=== PATIENT | female | born 1960 | race Caucasian/White ===

== ENCOUNTER 2021-01-06 12:29 | Inpatient (IN) | payer MEDICARE, OTHER ==
[~2021-01-06] VITALS: Ht 162.6 cm; Wt 79.4 kg
[~2021-01-06 12:29] MED LIST: CETI-90 PO; LEVA15HF4 IH; LISI20TA30 PO; METF-495 PO; OMEP40CA13 PO; SIMV-46 PO
--- NOTE | 2021-01-06 12:40 | NUR ---
Pt refuses to wear a mask, dr Mccloud made aware.
--- NOTE | 2021-01-06 12:45 | NUR ---
Dr Mccloud medically cleared the pt.
--- NOTE | 2021-01-06 12:59 | NUR ---
Pt refused blood draw for Acetaminophen level.
--- NOTE | 2021-01-06 13:04 | NUR ---
Lunch tray provided, pt ate w/ good appetite.
[2021-01-06] MEDS ORDERED: PANT40TA2 PO (13:13)
[2021-01-06] MEDS ORDERED: METF-440 PO (13:13)
[2021-01-06] MEDS ORDERED: EMPA10TA PO (13:13)
[2021-01-06] MEDS ORDERED: QUET400T PO (13:13)
[2021-01-06] MEDS ORDERED: OXYC-128 PO (13:13)
[2021-01-06] MEDS ORDERED: BUDE10.2 IH ×2 (13:13)
[2021-01-06 13:46] LABS: ACETAMINOPHEN < 2.0 ug/mL (10-30)
--- NOTE | 2021-01-06 13:57 | NUR ---
assissted pt to bathroom, unsteady gait.
--- NOTE | 2021-01-06 14:10 | NUR ---
Patient is resting comfortably in bed with eyes closed, NAD noted.
[2021-01-06] MEDS ORDERED: ACETAMINOPHEN 325 MG TABLET PO PRN (15:00)
[2021-01-06] MEDS ORDERED: ZOLPIDEM 5 MG TABLET PO PRN (15:00)
[2021-01-06] MEDS ORDERED: MAGNESIUM HYDROXIDE 30 ML LIQUID UDC PO PRN (15:00)
[2021-01-06] MEDS ORDERED: LORAZEPAM 0.5 MG TABLET PO PRN (15:00)
--- NOTE | 2021-01-06 15:00 | NUR ---
Gps/Composite Bond Technician- Received report from IN STORE REPRESENTATIVE. Admitted via gurney . Eyes closed, encouraged to open eyes, refused. patient refusing to get up from the gurney , refusing to follow directions. Patient was put in bed , sliding with 3 staff assisting . Patient mumbles, remains in her left side position , no signs of any distress. patient came in with a black suit case, and baby stroller (zabala ) . Unable to get any information at this time from the patient, refusing to talk, eye are flickering . Weighed via bed 179 lbs. Bed alarm was set for safety .
[2021-01-06] MEDS ORDERED: BLOOD SUGAR DIAGNOSTIC 1 EACH STRIP VI ONE (15:30)
[2021-01-06 16:00] VITALS: BP 112/77
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
--- NOTE | 2021-01-06 16:47 | NUR ---
Gps/Associate Professor Of Engineering- Asked patient permission if its ok to call her daughter Carri Burns , patient yelling top of her voice stated" dont you dare call that bitch , and get out of here ". refused to have light in the room, kept closing her door, discouraged from closing the door, oriented to unit settings. Patient refusing to listen to discussion why she is here in the Hosp. she kept yelling and calling staff names.
--- NOTE | 2021-01-06 17:05 | NUR ---
received a call from Maria Dolores (nurse from [facility] ) [phone], assisted with her inquiry will endorse with SW
--- NOTE | 2021-01-06 17:58 | NUR ---
Gps/Library Consultant- Patient agreed to have a shower, assisted by ACID LOADER 40 minutes .
[2021-01-06] MEDS: METFORMIN HCL 500 MG TABLET PO SCH (18:00)
[2021-01-06 20:09] VITALS: BP 116/72
[2021-01-06] MEDS: FLUTICASONE/VILANTEROL 1 EACH BLST.W.DEV INH SCH (21:00)
[2021-01-06] MEDS: SIMVASTATIN 40 MG TABLET PO SCH (21:00)
--- NOTE | 2021-01-07 05:54 | NUR ---
carol slept 5 hours; refused some meds; anxious earlier; had PRN ativan x1; safety maintained; needs attended.
[2021-01-07 07:30] VITALS: BP 116/68
[2021-01-07] MEDS: METFORMIN HCL 500 MG TABLET PO SCH ×3 (08:00→18:57)
[2021-01-07] MEDS: FLUTICASONE/VILANTEROL 1 EACH BLST.W.DEV INH SCH ×2 (08:43→20:43)
--- NOTE | 2021-01-07 12:10 | NUR ---
CADENCE Initial Discharge Plan: Patient was currently residing at home [address] [place] [address] [address] [address] ([phone]) with her daughter and her daughter's boyfriend. No information or contact is provided for daughter. Unknown at this time if patient would like to return home. CADENCE will continue to work with patient and MD to ensure a safe and proper discharge plan.
[2021-01-07] MEDS: DIVALPROEX 250 MG TABLET.DR PO SCH ×2 (12:36→17:00)
[2021-01-07] MEDS: QUETIAPINE FUMARATE 100 MG TABLET PO SCH ×4 (12:37→20:34)
--- NOTE | 2021-01-07 12:37 | NUR ---
gps/Pushcart Peddler- patient refusing seroquel and depakote, she claimed she does not want to take depakote , makes her gain weight, and seroquel she takes it at night 600 mg. po, reviewed with patient rest of her meds, claimed she does not want to take anything right right 'please leave me alone and turn the lights off"
--- NOTE | 2021-01-07 13:14 | NUR ---
Firearms Report: Antenna Design Engineer completed and submitted a [employer] firearms report for 5150 danger to self certifications. A copy of report has been placed in patient chart.
--- NOTE | 2021-01-07 13:15 | NUR ---
CADENCE Customer Solutions Coordinator Contact: CADENCE spoke with patient's porter sample case from [facility] Maria Dolores ([phone]) who provided collateral information as far as patient's mental health history. Patient's psychiatrist is Osbaldo Hinojosa at [facility]. Maria Dolores faxed patient's current medications.
[2021-01-07] MEDS ORDERED: HYDR-501 PO (14:19)
[2021-01-07] MEDS ORDERED: TOPI100T PO (15:02)
--- NOTE | 2021-01-07 15:13 | NUR ---
RECEIVED A FAX LETTER COMING FROM [facility] REGARDING PATIENTS UPDATE HOME MEDICATION LIST, UPDATED THE HOME MEDICATION , DR. WEN MADE AWARE
[2021-01-07] MEDS: MAG HYDROX/AL HYDROX/SIMETH 30 ML LIQUID UDC PO PRN (15:49)
--- NOTE | 2021-01-07 16:03 | NUR ---
Gps/Bullet Slug Casting Machine Operator- Complaining of indigestion , requesting protonix po, informed no such order , offered mylanta 30 ml as ordered, taken with encouragement.
[2021-01-07] MEDS: SIMVASTATIN 40 MG TABLET PO SCH (20:34)
--- NOTE | 2021-01-08 05:53 | NUR ---
GPS: Remain cooperative with medications,uncooperative with care. slept 7.30 hrs through the night. Patient is resting comfortably in bed with eyes closed, No agitation noted. continue plan of care.
[2021-01-08 07:30] VITALS: BP 104/67
--- NOTE | 2021-01-08 07:30 | NUR ---
Received patient lying in bed.sleeping but easily arousable.Non-compliant with po medications. Patient is alert and oriented times 2.Ambulate with FWW.no agitation noted at this time. Kept clean and dry. Safety measures in place. Will continue plan of care.
[2021-01-08 08:33] LABS: BILIRUBIN,TOTAL 0.3 mg/dL (0.2-1.0); CREATININE 0.8 mg/dL (0.6-1.3); POTASSIUM 4.5 mmol/L (3.5-5.1); TOTAL PROTEIN, SERUM 7.3 g/dL (6.4-8.2)
[2021-01-08] MEDS: METFORMIN HCL 500 MG TABLET PO SCH ×3 (08:50→17:30)
[2021-01-08] MEDS: QUETIAPINE FUMARATE 100 MG TABLET PO SCH ×4 (08:50→17:25)
[2021-01-08] MEDS: DIVALPROEX 250 MG TABLET.DR PO SCH ×5 (08:50→17:26)
[2021-01-08] MEDS: FLUTICASONE/VILANTEROL 1 EACH BLST.W.DEV INH SCH (08:51)
--- NOTE | 2021-01-08 10:06 | NUR ---
Received patient in the Yumiko chair close to the nursing station for safety. Patient is alert and oriented times 1. Patient responsive to name only. Patient is confused and disoriented to time and place. Compliant with medications. Patient is easily irritable and gets agitated. Needs complete assistance with ADLs. Safety precautions are in place. Will continue to monitor. Addendum: 01/08/21 at 1008 by PADILLA FLANAGAN RN Charted on the wrong patient.
[2021-01-08] MEDS ORDERED: Medication Not On Formulary EA (Omeprazole 40 MG) PO SCH (10:15)
[2021-01-08] MEDS ORDERED: Medication Not On Formulary EA (Empagliflozin (Jardiance) 10 MG) PO SCH (10:15)
[2021-01-08] MEDS: LISINOPRIL 20 MG TABLET PO SCH (10:15)
[2021-01-08] MEDS: CETIRIZINE HCL 10 MG TABLET PO SCH (10:15)
[2021-01-08] MEDS ORDERED: SIMVASTATIN 20 MG TABLET PO SCH (10:15)
[2021-01-08] MEDS ORDERED: DEXTROSE 50% 50 ML DISP.SYRIN IV PRN (10:15)
[2021-01-08] MEDS: PANTOPRAZOLE SODIUM 40 MG TABLET.DR PO SCH (10:15)
[2021-01-08] MEDS ORDERED: OXYCODONE/APAP 5-325 MG TABLET PO PRN (10:15)
[2021-01-08] MEDS ORDERED: hydrOXYzine HCL 25 MG TABLET PO PRN (10:15)
[2021-01-08] MEDS ORDERED: METFORMIN HCL 500 MG TABLET PO SCH ×2 (10:15)
[2021-01-08] MEDS: TOPIRAMATE 100 MG TABLET PO SCH ×2 (10:15→20:40)
--- NOTE | 2021-01-08 10:35 | NUR ---
Spoke with pharmacy. Asking for patient or family to provide Jardiance from home medications. Spoke with daughter toni, she says she is in the process of getting a restraining order on her mom. Also she says that patient refuses to be compliant with medications and end up in hospital every three weeks. Made pharmacist aware. Will continue to monitor.
--- NOTE | 2021-01-08 10:44 | NUR ---
Patient is refusing to wake up and take medication at this time. She says " she is too tired, haven't gotten any sleep and needs rest. Will not open her eyes just mumbles her responses.
[2021-01-08] MEDS: BLOOD SUGAR DIAGNOSTIC 1 EACH STRIP VI SCH ×3 (11:30→20:47)
--- NOTE | 2021-01-08 13:48 | NUR ---
Patient is still refusing to take medications. The only one she took was Seroquel. she is also complaining that her medications are being given at the wrong time. All risk snd benefits explained to the patient.
[2021-01-08] MEDS: MAG HYDROX/AL HYDROX/SIMETH 30 ML LIQUID UDC PO PRN (15:35)
--- NOTE | 2021-01-08 20:00 | NUR ---
patient refused v/s and blood sugar check.
[2021-01-08] MEDS: SIMVASTATIN 40 MG TABLET PO SCH (20:41)
[2021-01-08] MEDS ORDERED: QUETIAPINE FUMARATE 200 MG TABLET PO SCH (21:00)
[2021-01-09] MEDS: BLOOD SUGAR DIAGNOSTIC 1 EACH STRIP VI SCH ×4 (06:16→21:00)
--- NOTE | 2021-01-09 06:18 | NUR ---
GPS: Remain uncooperative with nursing care. patient refused am blood sugar check. no agitation noted at this time. slept 3.45 hrs after sleeping medication given. resting in bed comfortably.
[2021-01-09 07:30] VITALS: BP 106/58
[2021-01-09] MEDS: QUETIAPINE FUMARATE 100 MG TABLET PO SCH ×3 (08:00→16:17)
[2021-01-09] MEDS: METFORMIN HCL 500 MG TABLET PO SCH ×3 (08:00→17:23)
[2021-01-09] MEDS: LISINOPRIL 20 MG TABLET PO SCH (09:00)
[2021-01-09] MEDS: DIVALPROEX 250 MG TABLET.DR PO SCH ×3 (09:00→16:16)
[2021-01-09] MEDS: CETIRIZINE HCL 10 MG TABLET PO SCH ×2 (09:00→12:39)
[2021-01-09] MEDS ORDERED: METFORMIN HCL 500 MG TABLET PO SCH (09:00)
[2021-01-09] MEDS: PANTOPRAZOLE SODIUM 40 MG TABLET.DR PO SCH (09:00)
[2021-01-09] MEDS: FLUTICASONE/VILANTEROL 1 EACH BLST.W.DEV INH SCH ×2 (09:00→17:24)
--- NOTE | 2021-01-09 20:00 | NUR ---
RECEIVED PATIENT IN HER ROOM SITTING IN HER BED.SHE IS NOTED HYPERVERBAL, EASILY IRRITABLE, MULTIPLE COMPLAINS, VERBALLY ABUSIVE. PATIENT NOTED A/O X 2. POOR INSIGHT AND JUDGMENT IS NOTED TO THE REASON FOR HER ADMISSION TO MHU. SHE DENIED SI/HI/VH/AH. SHE IS ABLE TO CFS. SHE IS REASSURED FOR HER SAFETY. SAFETY AND FALL PRECAUTION IN PLACE. V/S STABLE. WILL CONTINUE TO MONITOR.
[2021-01-09 20:06] VITALS: BP 101/56
--- NOTE | 2021-01-09 21:45 | NUR ---
PATIENT REFUSED ACCU CHECK. THE IMPORTANCE OF COMPLYING WITH ACCUCHECKS TO IMPROVE DM SXS WERE EXPLAINED, YET REFUSED. WILL COJTINUE TO MONITOR,
[2021-01-09] MEDS: QUETIAPINE FUMARATE 200 MG TABLET PO SCH (21:53)
--- NOTE | 2021-01-09 22:00 | NUR ---
PATIENT WAS ABLE TO COMPLY WITH MEDICATION REGIMENT. SHE IS NOTED LESS IRRITABLE. WILL CONTINUE TO MONITOR.
[2021-01-09] MEDS: TOPIRAMATE 100 MG TABLET PO SCH (22:02)
[2021-01-09] MEDS: SIMVASTATIN 40 MG TABLET PO SCH (22:02)
[2021-01-10] MEDS: BLOOD SUGAR DIAGNOSTIC 1 EACH STRIP VI SCH ×4 (06:31→21:00)
--- NOTE | 2021-01-10 07:26 | NUR ---
patient slept for approx 4.30 hrs through the night. she refused accucheck. continue cursing easily irritable. will continue to monitor,
[2021-01-10 07:30] VITALS: BP 122/91
[2021-01-10] MEDS: QUETIAPINE FUMARATE 100 MG TABLET PO SCH ×2 (08:00→17:00)
[2021-01-10] MEDS: METFORMIN HCL 500 MG TABLET PO SCH ×2 (08:00→17:08)
[2021-01-10] MEDS: CETIRIZINE HCL 10 MG TABLET PO SCH (08:36)
[2021-01-10] MEDS: PANTOPRAZOLE SODIUM 40 MG TABLET.DR PO SCH (08:36)
[2021-01-10] MEDS: LISINOPRIL 20 MG TABLET PO SCH (08:36)
[2021-01-10] MEDS: FLUTICASONE/VILANTEROL 1 EACH BLST.W.DEV INH SCH ×2 (08:36→11:48)
[2021-01-10] MEDS: MAG HYDROX/AL HYDROX/SIMETH 30 ML LIQUID UDC PO PRN ×2 (10:53→17:07)
--- NOTE | 2021-01-10 19:00 | NUR ---
RECEIVED PATIENT IN HER ROOM. SHE IS NOTED A/O X 2. NOTED EASILY IRRITABLE, MULTIPLE COMPLAINS, "I DON'T NEED TO BE HERE". "I DON'T WANT A ROOM-MATE". "THE BED IS TOO SMALL". THEN SHE WILL LAY DOWN ON THE FLOOR. PATIENT IS HARD TO REDIRECT. MOOD IS IRRITABLE, AFFECT IS BLUNTED. SHE REFUSED ACCU CHECKS AND ALL HER QHS MEDICATIONS. SHE ALSO REFUSED V/S. PATIENT IS REASSURED FOR HER SAFETY, SAFETY AND FALL PRECAUTION IN PLACE. WILL CONTINUE TO MONITOR.
[2021-01-10] MEDS: TOPIRAMATE 100 MG TABLET PO SCH (21:00)
[2021-01-10] MEDS: QUETIAPINE FUMARATE 200 MG TABLET PO SCH (21:00)
[2021-01-10] MEDS: SIMVASTATIN 40 MG TABLET PO SCH (21:00)
[2021-01-10] MEDS ORDERED: OLANZAPINE 10 MG VIAL IM STA (21:45)
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
--- NOTE | 2021-01-10 23:00 | NUR ---
PATIENT NOTED CALM AT THIS. SHE IS ABLE TO VERBALIZED FEELINGS. SHE STATED, "I WAS JUST VENTING OUT". PATIENT WAS REASSURED FOR HER SAFETY. SAFETY AND FALL PRECAUTION IN PLACE. WILL CONTINUE TO MONITOR.
[2021-01-11] MEDS: MAG HYDROX/AL HYDROX/SIMETH 30 ML LIQUID UDC PO PRN ×2 (00:53→14:43)
[2021-01-11] MEDS: BLOOD SUGAR DIAGNOSTIC 1 EACH STRIP VI SCH ×4 (07:30→20:46)
[2021-01-11] MEDS: LISINOPRIL 20 MG TABLET PO SCH (08:54)
[2021-01-11] MEDS: FLUTICASONE/VILANTEROL 1 EACH BLST.W.DEV INH SCH (09:35)
[2021-01-11] MEDS: PANTOPRAZOLE SODIUM 40 MG TABLET.DR PO SCH (09:35)
[2021-01-11] MEDS: METFORMIN HCL 500 MG TABLET PO SCH ×2 (09:35→17:21)
[2021-01-11] MEDS: LITHIUM CARBONATE 300 MG CAPSULE PO SCH ×2 (09:36→17:21)
[2021-01-11] MEDS: CETIRIZINE HCL 10 MG TABLET PO SCH (09:36)
--- NOTE | 2021-01-11 11:03 | NUR ---
APS Contact: CADENCE received a call from APS long term care social worker Joie ([phone]). CADENCE called back however unable to reach and unable to leave a voicemail due to mailbox full.
--- NOTE | 2021-01-11 11:16 | NUR ---
SNF Referral: Faxed patient's referral packet attention to [facility] to the following facilities for review and possible placement [facility] ([phone]), [facility] ([phone]), [facility] ([phone]), [facility] ([phone]). Addendum: 01/13/21 at 1104 by BRENT VANEGAS Patient is accepted at [facility].
[2021-01-11] MEDS: ACYCLOVIR 200 MG CAPSULE PO SCH ×2 (14:00→22:00)
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
--- NOTE | 2021-01-11 14:36 | NUR ---
CADENCE BAIRD Hearing: Patient had 5250 probable cause hearing today and it was upheld for grave disability and danger to herself.
[2021-01-11 16:00] VITALS: BP 142/78
[2021-01-11 20:20] VITALS: BP 137/81
[2021-01-11] MEDS: QUETIAPINE FUMARATE 200 MG TABLET PO SCH (20:44)
[2021-01-11] MEDS: TOPIRAMATE 100 MG TABLET PO SCH (21:00)
[2021-01-11] MEDS: SIMVASTATIN 40 MG TABLET PO SCH (21:00)
[2021-01-11] MEDS: LORAZEPAM 1 MG TABLET PO PRN (23:50)
[2021-01-12] MEDS: ACYCLOVIR 200 MG CAPSULE PO SCH ×3 (06:45→21:47)
[2021-01-12] MEDS: BLOOD SUGAR DIAGNOSTIC 1 EACH STRIP VI SCH ×5 (06:45→20:31)
[2021-01-12 07:30] VITALS: BP 111/63
[2021-01-12 07:31] LABS: BASOPHILS % (AUTO) 0.5 % (0.0-2.0); EOSINOPHILS # (AUTO) 0.2 K/uL (0.0-0.7); HEMATOCRIT 38.5 % (31.2-41.9); HEMOGLOBIN 12.5 g/dL (10.9-14.3); LYMPHOCYTES # (AUTO) 2.5 K/uL (20.0-40.0); LYMPHOCYTES % (AUTO) 32.5 % (20.5-51.5); MEAN CORPUSCULAR HEMOGLOBIN 28.1 uug (24.7-32.8); MEAN CORPUSCULAR HGB CONC 33 g/dL (32.3-35.6); MEAN CORPUSCULAR VOLUME 86.4 fL (75.5-95.3); MONOCYTES # (AUTO) 0.7 K/uL (2.0-10.0); MONOCYTES % (AUTO) 8.9 % (0.0-11.0); NEUTROPHILS # (AUTO) 4.2 K/uL (1.8-8.9); NEUTROPHILS % (AUTO) 55.1 % (38.5-71.5); PLATELET COUNT (AUTO) 273 K/uL (179-408); RED BLOOD CELL COUNT(AUTO) 4.45 MIL/uL (3.63-4.92); WHITE BLOOD COUNT (AUTO) 7.7 K/uL (3.8-11.8)
[2021-01-12 07:41] LABS: CREATININE 0.8 mg/dL (0.6-1.3); POTASSIUM 4.3 mmol/L (3.5-5.1)
--- NOTE | 2021-01-12 07:41 | NUR ---
CALL RECEIVED FROM LAB RE BLOOD SUGAR IS 368 BUT PATIENT IS HAS BEEN REFUSING BLOOD SUGAR CHECKS THEN WAS ABLE TO CONVINCE HER AT 0753 TO HAVE HER BLOOD SUGAR CHECKED AND ITS 356 SO INSULIN GIVEN PER SLIDING COVERAGE WAS VERY DIFFICULT TO CONVINCE HER TO TAKE THE INSULIN NO S/S OF HYPO/HYPERGLYCEMIC REACTIONS AT THIS TIME.
[2021-01-12] MEDS: METFORMIN HCL 500 MG TABLET PO SCH ×2 (08:00→17:21)
[2021-01-12] MEDS: INSULIN REGULAR, HUMAN 300 UNIT/3 ML VIAL SQ PRN ×3 (08:09→17:24)
[2021-01-12] MEDS: CETIRIZINE HCL 10 MG TABLET PO SCH ×2 (09:00→10:59)
[2021-01-12] MEDS: FLUTICASONE/VILANTEROL 1 EACH BLST.W.DEV INH SCH ×2 (09:00→10:58)
[2021-01-12] MEDS: LISINOPRIL 20 MG TABLET PO SCH ×2 (09:00→10:59)
[2021-01-12] MEDS: PANTOPRAZOLE SODIUM 40 MG TABLET.DR PO SCH (10:10)
[2021-01-12] MEDS: LITHIUM CARBONATE 300 MG CAPSULE PO SCH ×3 (10:10→17:00)
--- NOTE | 2021-01-12 10:13 | NUR ---
WAS ONLY ABLE TO CONVINCE PATIENT TO TAKE HER LITHIUM AND PROTONIX REFUSED EVERYTHING ELSE AT THIS TIME STATED DOES NOT TAKE MEDICATIONS IN THE MORNING.
--- NOTE | 2021-01-12 11:00 | NUR ---
PATIENT IS AT THE NURSES STATION DEMANDING TO TAKE THE REST OF HER MEDICATIONS GIVEN ORDERED STATED DOES NOT LIKE TO TAKE MEDICATIONS EARLY WANTS HER MEDICATIONS WHEN SHE IS READY FOR THEM VERY ARGUMENTATIVE STATED WILL ONLY TAKE HER MEDICATIONS WHEN SHE WANTS TO TAKE THEM
--- NOTE | 2021-01-12 11:14 | NUR ---
APS Contact: SW spoke with APS social work coordinator Joie ([phone]) and provided treatment and discharge plan information. SW also discussed restraining order from daughter and provided collateral information. Joie stated that she is agreeable with SNF placement here in the [facility]. Joie provided this social work coordinator with the case number [id number]) and she stated that she is closing the case.
[2021-01-12 16:39] VITALS: BP 123/71
[2021-01-12] MEDS: LORAZEPAM 1 MG TABLET PO PRN (17:23)
--- NOTE | 2021-01-12 17:42 | NUR ---
PATIENT REFUSED TO TAKE HER LITHIUM ORDERED OFFERED MANY TIMES VERY ANXIOUS MEDICATED WITH ATIVAN ORDERED SHE IS ALSO DEMANDING TO GET HER INHALER BUT SHE DID GET HER INHALER THIS MORNING STATED SHE DID NOT REMEMBER GETTING IT REASSURED HER THAT SHE DID GET IT.
[2021-01-12] MEDS: SIMVASTATIN 40 MG TABLET PO SCH (20:22)
[2021-01-12] MEDS: TOPIRAMATE 100 MG TABLET PO SCH (20:22)
[2021-01-12] MEDS: QUETIAPINE FUMARATE 200 MG TABLET PO SCH (20:22)
[2021-01-12] MEDS: INSULIN GLARGINE,HUM 300 UNITS/3 ML CARTRIDGE SQ SCH (20:38)
[2021-01-12] MEDS: INSULIN REGULAR, HUMAN 300 UNITS/3 ML VIAL SQ PRN (20:47)
[2021-01-13] MEDS: ACYCLOVIR 200 MG CAPSULE PO SCH ×3 (06:00→21:33)
[2021-01-13] MEDS: BLOOD SUGAR DIAGNOSTIC 1 EACH STRIP VI SCH ×4 (06:37→20:40)
--- NOTE | 2021-01-13 06:39 | NUR ---
GPS: Pt.is angry,irritable and refusing blood sugar check at this time and her Acyclovir med.despite explanation of importance. Staff unable to persuade pt.at this time.
[2021-01-13 07:30] VITALS: BP 139/74
[2021-01-13] MEDS: METFORMIN HCL 500 MG TABLET PO SCH ×2 (08:00→18:01)
[2021-01-13] MEDS: LISINOPRIL 20 MG TABLET PO SCH (09:00)
[2021-01-13] MEDS: PANTOPRAZOLE SODIUM 40 MG TABLET.DR PO SCH (09:00)
[2021-01-13] MEDS: LITHIUM CARBONATE 300 MG CAPSULE PO SCH ×2 (09:00→17:00)
[2021-01-13] MEDS: FLUTICASONE/VILANTEROL 1 EACH BLST.W.DEV INH SCH (09:00)
[2021-01-13] MEDS: CETIRIZINE HCL 10 MG TABLET PO SCH (09:00)
--- NOTE | 2021-01-13 10:30 | NUR ---
Gps/Clerk Rating- Patient refusing routine am meds, offered insulin sliding scale coverage , refused, tends to be argumentative, refusing lithium , claimed she does note need to take it anymore, informed and instructed patient the needs to talked to her Psychiatrist , and comply with her Psych. meds. in order for her to get home. Selective with her medications, prompting and encouragement needed.
--- NOTE | 2021-01-13 11:47 | NUR ---
CADENCE Individual Therapy Note: SW met with patient today and provided brief individual counseling to address patient's presenting problem of suicidal ideation. SW assessed patient's level of suicidality. Patient denies current suicidal ideation. Patient presents with withdrawn mood and flat affect. Patient began to complain about her sleep and stated that she does not want to be bothered when she does sleep to take medications. SW attempted to help patient gain insight into her presenting problems and educated about the importance of her mental and physical health related to taking medications. Patient became irritated and stated "I know my body and I know better". Patient walked away from this oncology social worker. SW will remain available for patient for continued supportive counseling.
[2021-01-13] MEDS: INSULIN REGULAR, HUMAN 300 UNIT/3 ML VIAL SQ PRN (11:57)
--- NOTE | 2021-01-13 11:58 | NUR ---
Gps/Water Resource Project Manager- Sliding scale Insulin coverage not administer earlier, patient refusing to eat breakfast, ate late when fully awake. @ 1150 BS 348 . Not compliant with her care and meds. management.
--- NOTE | 2021-01-13 15:05 | NUR ---
Gps/Tray Line Supervisor- Needy, very intrusive, constantly needing redirections . Selective with her routine meds. Kept asking to have her own clothes to wear , clothes for bedtime and clothes for daytime /pt. .
[2021-01-13 16:00] VITALS: BP 106/62
--- NOTE | 2021-01-13 18:00 | NUR ---
Gps/Tablet Tester- Refusing pm med. claimed does not need them, refused blood sugar accu-check, claimed does not have blood sugar when eating,patient was taken to shower this pm, showered self ind after set up.
[2021-01-13 20:14] VITALS: BP 132/71
[2021-01-13] MEDS: QUETIAPINE FUMARATE 200 MG TABLET PO SCH (20:39)
[2021-01-13] MEDS: SIMVASTATIN 40 MG TABLET PO SCH (20:39)
[2021-01-13] MEDS: TOPIRAMATE 100 MG TABLET PO SCH (20:40)
[2021-01-13] MEDS: INSULIN REGULAR, HUMAN 300 UNITS/3 ML VIAL SQ PRN (20:44)
[2021-01-13] MEDS: INSULIN GLARGINE,HUM 300 UNITS/3 ML CARTRIDGE SQ SCH (20:45)
[2021-01-13] MEDS: MAG HYDROX/AL HYDROX/SIMETH 30 ML LIQUID UDC PO PRN (22:09)
--- NOTE | 2021-01-14 03:11 | NUR ---
RECEIVED PATIENT IN THE ACTIVITY ROOM. SHE WAS IRRITABLE WHEN HER BLOOD SUGAR WAS BEING CHECKED. BS WAS 264. BOTH INSULIN LANTUS AND REGULAR WAS GIVEN PRESCRIBED AFTER SHE HAD HAD A SNACK. SHE IS SELECTIVE WITH HER MEDICATIONS AND REFUSED TO TAKE THE ACYCLOVIR. RISKS AND BENEFIT EXPLAINED X3. OCCASIONALLY INTRUSIVE AND HAS TO BE REDIRECTED. VISUAL CHECKS MADE ON HER FOR SAFETY. WILL CONTINUE TO MONITOR.
[2021-01-14] MEDS: ACYCLOVIR 200 MG CAPSULE PO SCH ×3 (06:30→22:00)
[2021-01-14] MEDS: BLOOD SUGAR DIAGNOSTIC 1 EACH STRIP VI SCH ×4 (06:33→20:42)
--- NOTE | 2021-01-14 06:46 | NUR ---
SLEPT FOR 3:00 HOURS. BLOOD SUGAR CHECK WAS 280.TOOK HER A VERY LONG TIME TO TAKE HER MEDICATIONS THIS MORNING. 'SHE SAID I DO NOT DO MORNINGS WELL. TELL THE DOCTOR NOT TO PUT ME MEDS AT THIS TIME.'.
[2021-01-14 07:30] VITALS: BP 100/51
[2021-01-14] MEDS: FLUTICASONE/VILANTEROL 1 EACH BLST.W.DEV INH SCH (09:00)
[2021-01-14] MEDS: LITHIUM CARBONATE 300 MG CAPSULE PO SCH ×2 (09:00→17:00)
[2021-01-14] MEDS: LISINOPRIL 20 MG TABLET PO SCH (09:00)
[2021-01-14] MEDS: CETIRIZINE HCL 10 MG TABLET PO SCH (13:12)
[2021-01-14] MEDS: METFORMIN HCL 500 MG TABLET PO SCH ×2 (13:12→17:45)
[2021-01-14] MEDS: PANTOPRAZOLE SODIUM 40 MG TABLET.DR PO SCH (13:13)
--- NOTE | 2021-01-14 13:16 | NUR ---
Gps/Lcvn- Re offered lithium cap. refused, claimed it gives her bad side effects, when asked what is the side effect, claimed " it s making me psychotic".
[2021-01-14 15:25] VITALS: BP 94/66
[2021-01-14] MEDS: MAG HYDROX/AL HYDROX/SIMETH 30 ML LIQUID UDC PO PRN (16:32)
--- NOTE | 2021-01-14 17:45 | NUR ---
Gps/Mooner- Patient refusing to have her blood sugar accu-check this pm patient verbalized feelings of being upset that Dietary kept sending her food that she does not like. called dietary, will arranged menu for 5 days that patient can ann-marie , starting tomorrow. patient tends to be selective with her routine meds.
[2021-01-14 20:09] VITALS: BP 103/54
[2021-01-14] MEDS: INSULIN REGULAR, HUMAN 300 UNITS/3 ML VIAL SQ PRN (20:45)
[2021-01-14] MEDS: INSULIN GLARGINE,HUM 300 UNITS/3 ML CARTRIDGE SQ SCH (20:49)
[2021-01-14] MEDS: SIMVASTATIN 40 MG TABLET PO SCH (21:17)
[2021-01-14] MEDS: QUETIAPINE FUMARATE 200 MG TABLET PO SCH (21:17)
[2021-01-14] MEDS: TOPIRAMATE 100 MG TABLET PO SCH (21:17)
[2021-01-15] MEDS: ACYCLOVIR 200 MG CAPSULE PO SCH ×3 (06:00→21:23)
[2021-01-15] MEDS: BLOOD SUGAR DIAGNOSTIC 1 EACH STRIP VI SCH ×4 (06:11→20:41)
[2021-01-15 07:30] VITALS: BP 133/58
[2021-01-15] MEDS: INSULIN REGULAR, HUMAN 300 UNIT/3 ML VIAL SQ PRN ×3 (08:18→20:38)
[2021-01-15] MEDS: LISINOPRIL 20 MG TABLET PO SCH (08:18)
[2021-01-15] MEDS: METFORMIN HCL 500 MG TABLET PO SCH ×2 (08:18→18:02)
[2021-01-15] MEDS: FLUTICASONE/VILANTEROL 1 EACH BLST.W.DEV INH SCH (08:19)
[2021-01-15] MEDS: PANTOPRAZOLE SODIUM 40 MG TABLET.DR PO SCH (08:19)
[2021-01-15] MEDS: CETIRIZINE HCL 10 MG TABLET PO SCH (08:19)
[2021-01-15] MEDS: LITHIUM CARBONATE 300 MG CAPSULE PO SCH (08:30)
[2021-01-15] MEDS ORDERED: diphenhydrAMINE 50 MG CAPSULE PO PRN (11:00)
[2021-01-15] MEDS: LORAZEPAM 1 MG TABLET PO PRN (11:55)
--- NOTE | 2021-01-15 12:55 | NUR ---
Gps/Admissions Consultant- Complaining not getting what she wants during her meals, patient was able to talked to Technical Business Systems Analyst , menu for 5 days worth was gievn to patient that she can fill up. . Tends to get selective on her routine meds. wants to take, then on certain time . reviewed medications with patient, still not happy about her meds. wanting to take medications that works for her, , Claimed she is not suiciidal, not depressed anymore , instructed and encouraged to talk ti her psychiatrist .
[2021-01-15] MEDS: MAG HYDROX/AL HYDROX/SIMETH 30 ML LIQUID UDC PO PRN (15:55)
--- NOTE | 2021-01-15 16:02 | NUR ---
PT FREQUENTLY AT NURSES STATION, MAKING MULTIPLE REQUESTS AND COMPLAINTS. UNHAPPY WITH THE FOOD, UNHAPPY WITH THE DOCTORS, UNHAPPY WITH ROOM TEMPERATURES, UNHAPPY WITH HER MEDICATIONS, UNHAPPY WITH HER LACK OF SLEEP, ETC. REQUIRES EXTENSIVE AND FREQUENT REDIRECTION. PT IS AGITATED AND EASILY IRRITABLE. REMAINS NEEDY, INTRUSIVE, MANIPULATIVE, AND DEMANDING. FOLLOWS NURSES AROUND MAKING DIFFERENT REQUESTS/COMPLAINTS. NOTHING NURSES DO APPEAR TO APPROPRIATELY SATISFY PT.
[2021-01-15 20:21] VITALS: BP 115/61
[2021-01-15] MEDS: INSULIN GLARGINE,HUM 300 UNITS/3 ML CARTRIDGE SQ SCH (20:39)
[2021-01-15] MEDS: SIMVASTATIN 40 MG TABLET PO SCH (20:40)
[2021-01-15] MEDS: TOPIRAMATE 100 MG TABLET PO SCH (20:40)
[2021-01-15] MEDS: QUETIAPINE FUMARATE 200 MG TABLET PO SCH (20:40)
[2021-01-15] MEDS: INSULIN REGULAR, HUMAN 300 UNITS/3 ML VIAL SQ PRN (21:00)
[2021-01-16] MEDS: BLOOD SUGAR DIAGNOSTIC 1 EACH STRIP VI SCH ×4 (06:34→20:48)
[2021-01-16] MEDS: ACYCLOVIR 200 MG CAPSULE PO SCH (06:34)
[2021-01-16 07:30] VITALS: BP 123/78
[2021-01-16] MEDS: MAG HYDROX/AL HYDROX/SIMETH 30 ML LIQUID UDC PO PRN (08:19)
[2021-01-16] MEDS: LISINOPRIL 20 MG TABLET PO SCH (08:52)
[2021-01-16] MEDS: PANTOPRAZOLE SODIUM 40 MG TABLET.DR PO SCH (08:52)
[2021-01-16] MEDS: METFORMIN HCL 500 MG TABLET PO SCH ×2 (08:53→18:00)
[2021-01-16] MEDS: CETIRIZINE HCL 10 MG TABLET PO SCH (08:53)
[2021-01-16] MEDS: FLUTICASONE/VILANTEROL 1 EACH BLST.W.DEV INH SCH (09:00)
[2021-01-16] MEDS: INSULIN REGULAR, HUMAN 300 UNIT/3 ML VIAL SQ PRN ×2 (09:02→12:29)
[2021-01-16 15:18] VITALS: BP 105/68
--- NOTE | 2021-01-16 17:23 | NUR ---
Gps/Diesel Dinkey Operator- Noted patient crying in the activity room , when asked what is going on, claimed she needs to have a shower, and they made her wait. Informed patient someone in in the shower at this time she has to learn to wait, few minutes needed cleaning after after each patient's shower. Refusing to have her blood sugar check, claimed she will not eat dinner either. Walking around with just a long blouse and barefooted, discouraged from inappropriate clothes, , claimed she can do what she wants.
--- NOTE | 2021-01-16 17:27 | NUR ---
Gps/Wind Farm Operations Manager- Came out of her room , requesting to have a shower,, asking staff in a nice way.
[2021-01-16 20:14] VITALS: BP 116/64
[2021-01-16] MEDS: SIMVASTATIN 40 MG TABLET PO SCH (20:47)
[2021-01-16] MEDS: TOPIRAMATE 100 MG TABLET PO SCH (20:47)
[2021-01-16] MEDS: QUETIAPINE FUMARATE 200 MG TABLET PO SCH (20:47)
[2021-01-16] MEDS: INSULIN REGULAR, HUMAN 300 UNITS/3 ML VIAL SQ PRN (20:52)
[2021-01-16] MEDS: INSULIN GLARGINE,HUM 300 UNITS/3 ML CARTRIDGE SQ SCH (20:55)
[2021-01-17] MEDS: LORAZEPAM 1 MG TABLET PO PRN ×2 (00:15→14:48)
--- NOTE | 2021-01-17 06:36 | NUR ---
Patient slept for approx. 4 hrs through the night. She is compliant with medication regiment and accu checks. will continue to monitor.
[2021-01-17] MEDS: BLOOD SUGAR DIAGNOSTIC 1 EACH STRIP VI SCH ×4 (06:39→20:35)
[2021-01-17 07:30] VITALS: BP 98/55
[2021-01-17] MEDS: CETIRIZINE HCL 10 MG TABLET PO SCH (08:53)
[2021-01-17] MEDS: LISINOPRIL 20 MG TABLET PO SCH (08:54)
[2021-01-17] MEDS: PANTOPRAZOLE SODIUM 40 MG TABLET.DR PO SCH (08:54)
[2021-01-17] MEDS: METFORMIN HCL 500 MG TABLET PO SCH ×2 (08:54→17:09)
[2021-01-17] MEDS: FLUTICASONE/VILANTEROL 1 EACH BLST.W.DEV INH SCH (08:59)
[2021-01-17] MEDS: INSULIN REGULAR, HUMAN 300 UNIT/3 ML VIAL SQ PRN ×3 (09:33→16:56)
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
--- NOTE | 2021-01-17 15:05 | NUR ---
CADENCE Pole Peeling Machine Operator Contact: CADENCE contacted patient's disease case manager from [facility] ([phone]) and informed her of the patient's discharge plan for tomorrow to [facility].
[2021-01-17 15:16] VITALS: BP 126/79
--- NOTE | 2021-01-17 15:31 | NUR ---
CADENCE Individual Therapy Note: SW met with patient today and provided brief individual counseling to address patient's presenting problem of suicidal ideation. SW assessed patient's level of suicidality. Patient denies current suicidal ideation. Patient presents with irritable mood and restrictive affect. Patient is complaining of her sleep and is stating "I can't control my anger". SW helped patient with anger management however patient is not cooperative, is hyperverbal and not receptive to redirection. SW also discussed discharge plan with patient and she is agreeable with [facility]. SW will remain available for patient for continued supportive counseling.
[2021-01-17 20:11] VITALS: BP 124/66
[2021-01-17] MEDS: TOPIRAMATE 100 MG TABLET PO SCH (20:34)
[2021-01-17] MEDS: SIMVASTATIN 40 MG TABLET PO SCH (20:34)
[2021-01-17] MEDS: INSULIN REGULAR, HUMAN 300 UNITS/3 ML VIAL SQ PRN (20:37)
[2021-01-17] MEDS ORDERED: INSULIN GLARGINE,HUM 300 UNITS/3 ML CARTRIDGE SQ SCH (21:00)
[2021-01-17] MEDS ORDERED: QUETIAPINE FUMARATE 200 MG TABLET PO SCH (21:00)
--- NOTE | 2021-01-18 05:21 | NUR ---
GPS: Patient remain calm and cooperative with meds and diet. no agitation noted at this time. ambulates with fww. no c/o pain or discomfort at this time. resting in bed comfortably. continue plan of care.
--- NOTE | 2021-01-18 05:56 | NUR ---
Patient slept for approx. 7 hrs through the night.
[2021-01-18] MEDS: BLOOD SUGAR DIAGNOSTIC 1 EACH STRIP VI SCH (06:48)
[2021-01-18 07:45] LABS: BASOPHILS # (AUTO) 0.1 K/uL (0.0-8.0); BASOPHILS % (AUTO) 0.9 % (0.0-2.0); EOSINOPHILS # (AUTO) 0.2 K/uL (0.0-0.7); EOSINOPHILS % (AUTO) 2.2 % (0.0-7.0); HEMOGLOBIN 13.7 g/dL (10.9-14.3); LYMPHOCYTES # (AUTO) 3.2 K/uL (20.0-40.0); LYMPHOCYTES % (AUTO) 40.6 % (20.5-51.5); MEAN CORPUSCULAR HGB CONC 33 g/dL (32.3-35.6); MONOCYTES # (AUTO) 0.7 K/uL (2.0-10.0); NEUTROPHILS # (AUTO) 3.7 K/uL (1.8-8.9); NEUTROPHILS % (AUTO) 47.3 % (38.5-71.5); PLATELET COUNT (AUTO) 286 K/uL (179-408); RED BLOOD CELL COUNT(AUTO) 4.71 MIL/uL (3.63-4.92); WHITE BLOOD COUNT (AUTO) 7.8 K/uL (3.8-11.8)
[2021-01-18 08:00] LABS: BILIRUBIN,TOTAL 0.2 mg/dL (0.2-1.0); CREATININE 0.7 mg/dL (0.6-1.3); MAGNESIUM 1.9 mg/dL (1.8-2.4); PHOSPHOROUS 4.1 mg/dL (2.5-4.9); POTASSIUM 4.1 mmol/L (3.5-5.1); TOTAL PROTEIN, SERUM 7.5 g/dL (6.4-8.2)
[2021-01-18 08:13] VITALS: BP 146/68
--- NOTE | 2021-01-18 08:20 | NUR ---
SW Discharge Note: Patient will be discharged to fpc facility [facility] [place] [address] ([phone]) via Ambulance transportation at 11AM today. Abalone Fisherman spoke with , Intensive Care Unit Registered Nurse ([phone]) at facility who confirmed that patient has been accepted at their facility today. Patient is alert and oriented x3. Patient is not able to plan for self-care at this time but is willing to accept care provided for her at the facility. Patient denies suicidal or homicidal ideation. Patient is aware and agreeable with discharge plans. Patient presents with euthymic mood and congruent affect. Patient will continue to follow-up with Psychiatrist Dr. Shanks and Packaging Designer Dr. Reddy at [facility]. Patients medical case worker from [facility] ([phone]) is made aware and is agreeable with discharge plan.
[2021-01-18 08:54] VITALS: BP 146/68
[2021-01-18] MEDS: CETIRIZINE HCL 10 MG TABLET PO SCH (08:54)
[2021-01-18] MEDS: METFORMIN HCL 500 MG TABLET PO SCH (08:54)
[2021-01-18] MEDS: MAG HYDROX/AL HYDROX/SIMETH 30 ML LIQUID UDC PO PRN (08:54)
[2021-01-18] MEDS: PANTOPRAZOLE SODIUM 40 MG TABLET.DR PO SCH (08:54)
[2021-01-18] MEDS: FLUTICASONE/VILANTEROL 1 EACH BLST.W.DEV INH SCH (08:54)
[2021-01-18] MEDS: LISINOPRIL 20 MG TABLET PO SCH (08:54)
[2021-01-18] MEDS: INSULIN REGULAR, HUMAN 300 UNIT/3 ML VIAL SQ PRN (11:14)
--- NOTE | 2021-01-18 11:15 | NUR ---
GPS: Nursing Notes: Discharge Notes: Patient is awake and responding to her name, compliant with her medications, following staff directions, but argumentative at times, denies SI/HI, denies AH/VH, denies pain or discomfort at this time, denies SOB, discharge to [facility] at [address] [place] [id number] , paramedics took all her belongings and team psychologist counted the money: $173.06 and cell phone, report given to Norma COLLINS tumbling and rolling supervisor at the facility. Patient will continue to follow-up with Psychiatrist Dr. Shanks and Batch And Furnace Manager Dr. Reddy at [facility]. Patients case hardener from [facility] ([phone]) is made aware and is agreeable with discharge plan by high school social science teacher.
== END 2021-01-18 11:15 | DRG 885 ==
LOC: ER 12:29 → GPS 14:37
PROVIDERS: ADMIT Psychiatry & Neurology Psychiatry; ATTEND Internal Medicine
DX: F25.0 Schizoaffective disorder, bipolar type (principal); E11.65 Type 2 diabetes mellitus with hyperglycemia; D68.69 Other thrombophilia; K21.9 Gastro-esophageal reflux disease without esophagitis; E78.5 Hyperlipidemia, unspecified; Z79.84 Long term (current) use of oral hypoglycemic drugs; Z79.899 Other long term (current) drug therapy; F41.9 Anxiety disorder, unspecified; E66.9 Obesity, unspecified; Z91.19 Patient's noncompliance with other medical treatment and regimen; G89.29 Other chronic pain; G47.00 Insomnia, unspecified; Z88.0 Allergy status to penicillin; B00.9 Herpesviral infection, unspecified; F32.9 Major depressive disorder, single episode, unspecified; M51.36 Other intervertebral disc degeneration, lumbar region; Z68.30 Body mass index [BMI] 30.0-30.9, adult; Z20.822 Contact with and (suspected) exposure to COVID-19
CPT/HCPCS: 36415; 83735; 84100; 84443; 84481; 85025; A4663; J1815; J2358; J3490; Q0163

== ENCOUNTER 2022-12-30 19:18 | Inpatient (IN) | payer MEDICARE, OTHER ==
[~2022-12-30] VITALS: Ht 139.7 cm; Wt 84.4 kg
[~2022-12-30 19:18] MED LIST changes: +BUDE10.2 IH; +EMPA10TA PO; +HYDR-501 PO; +METF-440 PO; -OMEP40CA13 PO; +OMEP40CA21 PO; +OXYC-128 PO; +PANT40TA2 PO; +TOPI100T PO
[2022-12-30] MEDS ORDERED: INSU100V7 SQ (19:44)
[2022-12-30] MEDS ORDERED: QUET400T PO (19:44)
[2022-12-30] MEDS ORDERED: METF-440 PO (19:44)
[2022-12-30] MEDS ORDERED: INSU100V39 SQ (19:44)
[2022-12-30] MEDS ORDERED: FLUT1BLS4 IH (19:44)
[2022-12-30] MEDS ORDERED: PANT40TA2 PO (19:44)
[2022-12-30] MEDS ORDERED: GABA300C PO (19:44)
[2022-12-30] MEDS ORDERED: LEVA0.6320 NEB (19:44)
[2022-12-30] MEDS ORDERED: INSULIN REGULAR, HUMAN 300 UNIT/3 ML VIAL IV ONE (20:15)
[2022-12-30] MEDS ORDERED: INSULIN REGULAR, HUMAN 300 UNIT/3 ML VIAL ONE (20:33)
[2022-12-31] MEDS ORDERED: MAGNESIUM HYDROXIDE 30 ML LIQUID UDC PO PRN
[2022-12-31] MEDS ORDERED: BLOOD SUGAR DIAGNOSTIC 1 EACH STRIP VI ONE
[2022-12-31] MEDS ORDERED: MAG HYDROX/AL HYDROX/SIMETH 30 ML LIQUID UDC PO PRN
[2022-12-31] MEDS ORDERED: DEXTROSE 50% 50 ML DISP.SYRIN IV PRN (12:45)
[2022-12-31] MEDS ORDERED: ALBUTEROL SULFATE 8 GM HFA.AER.AD IH PRN (13:00)
[2022-12-31] MEDS ORDERED: OLANZAPINE 10 MG VIAL IM ONE (13:30)
[2022-12-31] MEDS ORDERED: ALBUTEROL SULFATE 2.5 MG/3 ML NEBU NEB PRN (13:30)
[2022-12-31 16:04] VITALS: BP 100/64
[2022-12-31] MEDS: BLOOD SUGAR DIAGNOSTIC 1 EACH STRIP VI SCH ×2 (17:00→22:25)
[2022-12-31] MEDS: INSULIN REGULAR, HUMAN 300 UNIT/3 ML VIAL SQ PRN ×2 (17:34→22:29)
[2022-12-31] MEDS: GABAPENTIN 300 MG CAPSULE PO SCH ×2 (17:38→22:31)
[2022-12-31] MEDS: METFORMIN HCL 500 MG TABLET PO SCH (17:38)
[2022-12-31] MEDS: INSULIN GLARGINE,HUM 300 UNITS/3 ML CARTRIDGE SQ SCH (22:27)
[2022-12-31] MEDS: LORAZEPAM 1 MG TABLET PO PRN (22:29)
[2022-12-31] MEDS: TEMAZEPAM 7.5 MG CAPSULE PO PRN (22:29)
[2023-01-01] MEDS: GABAPENTIN 300 MG CAPSULE PO SCH ×4 (06:00→23:06)
[2023-01-01] MEDS: BLOOD SUGAR DIAGNOSTIC 1 EACH STRIP VI SCH ×4 (06:42→21:00)
[2023-01-01] MEDS: PANTOPRAZOLE SODIUM 40 MG TABLET.DR PO SCH (06:48)
[2023-01-01] MEDS: METFORMIN HCL 500 MG TABLET PO SCH ×2 (08:00→17:28)
[2023-01-01 08:47] VITALS: BP 98/61
[2023-01-01] MEDS: FLUTICASONE/VILANTEROL 1 EACH BLST.W.DEV INH SCH (08:58)
[2023-01-01] MEDS: ARIPIPRAZOLE 5 MG TABLET PO SCH (08:58)
[2023-01-01] MEDS: NUTRISOURCE FIBER 4 GM PACKET PO SCH ×2 (12:10→16:23)
[2023-01-01 16:41] VITALS: BP 106/64
[2023-01-01 20:07] VITALS: BP 101/66
[2023-01-01] MEDS: TEMAZEPAM 7.5 MG CAPSULE PO PRN (20:56)
[2023-01-01] MEDS: INSULIN GLARGINE,HUM 300 UNITS/3 ML CARTRIDGE SQ SCH (21:00)
[2023-01-01] MEDS ORDERED: ARIPIPRAZOLE 5 MG TABLET PO SCH (21:00)
[2023-01-02] MEDS: GABAPENTIN 300 MG CAPSULE PO SCH ×4 (06:54→23:59)
[2023-01-02] MEDS: PANTOPRAZOLE SODIUM 40 MG TABLET.DR PO SCH (06:54)
[2023-01-02] MEDS: BLOOD SUGAR DIAGNOSTIC 1 EACH STRIP VI SCH ×4 (06:57→20:17)
[2023-01-02] MEDS: METFORMIN HCL 500 MG TABLET PO SCH ×2 (08:00→17:32)
[2023-01-02] MEDS: ARIPIPRAZOLE 5 MG TABLET PO SCH (09:00)
[2023-01-02] MEDS: NUTRISOURCE FIBER 4 GM PACKET PO SCH ×3 (09:00→16:34)
[2023-01-02] MEDS: FLUTICASONE/VILANTEROL 1 EACH BLST.W.DEV INH SCH (09:00)
[2023-01-02] MEDS ORDERED: QUETIAPINE FUMARATE 25 MG TABLET PO PRN (19:00)
[2023-01-02] MEDS: INSULIN GLARGINE,HUM 300 UNITS/3 ML CARTRIDGE SQ SCH (20:17)
[2023-01-02] MEDS: TEMAZEPAM 7.5 MG CAPSULE PO PRN (20:38)
[2023-01-02] MEDS ORDERED: QUETIAPINE FUMARATE 25 MG TABLET PO SCH (21:00)
[2023-01-03] MEDS: GABAPENTIN 300 MG CAPSULE PO SCH ×5 (06:00→23:26)
[2023-01-03] MEDS: PANTOPRAZOLE SODIUM 40 MG TABLET.DR PO SCH ×2 (06:14→06:21)
[2023-01-03] MEDS: BLOOD SUGAR DIAGNOSTIC 1 EACH STRIP VI SCH ×4 (06:33→20:41)
[2023-01-03 07:30] VITALS: BP 127/92
[2023-01-03 07:47] LABS: HEMATOCRIT 40.1 % (31.2-41.9); MEAN CORPUSCULAR HEMOGLOBIN 28.8 uug (24.7-32.8); MEAN CORPUSCULAR VOLUME 87.2 fL (75.5-95.3); PLATELET COUNT (AUTO) 287 K/uL (179-408)
[2023-01-03 07:57] LABS: BILIRUBIN,TOTAL 0.2 mg/dL (0.2-1.0); CREATININE 0.7 mg/dL (0.6-1.3); POTASSIUM 4.3 mmol/L (3.5-5.1); TOTAL PROTEIN, SERUM 7.3 g/dL (6.4-8.2)
[2023-01-03] MEDS: METFORMIN HCL 500 MG TABLET PO SCH ×2 (08:00→18:00)
[2023-01-03] MEDS: FLUTICASONE/VILANTEROL 1 EACH BLST.W.DEV INH SCH (09:00)
[2023-01-03] MEDS: NUTRISOURCE FIBER 4 GM PACKET PO SCH ×3 (09:00→17:00)
[2023-01-03] MEDS ORDERED: QUETIAPINE FUMARATE 25 MG TABLET PO PRN (10:00)
[2023-01-03] MEDS ORDERED: OLANZAPINE 10 MG VIAL IM ONE (12:45)
[2023-01-03 16:00] VITALS: BP 102/54
[2023-01-03] MEDS: INSULIN GLARGINE,HUM 300 UNITS/3 ML CARTRIDGE SQ SCH (20:41)
[2023-01-03] MEDS ORDERED: QUETIAPINE FUMARATE 100 MG TABLET PO SCH (21:00)
[2023-01-03] MEDS ORDERED: QUETIAPINE FUMARATE 25 MG TABLET PO SCH (21:00)
[2023-01-03] MEDS: QUETIAPINE FUMARATE 100 MG TABLET PO SCH ×2 (21:24→22:41)
[2023-01-03] MEDS: TEMAZEPAM 7.5 MG CAPSULE PO PRN (22:41)
[2023-01-04] MEDS: BLOOD SUGAR DIAGNOSTIC 1 EACH STRIP VI SCH ×4 (05:54→21:00)
[2023-01-04] MEDS: PANTOPRAZOLE SODIUM 40 MG TABLET.DR PO SCH (05:54)
[2023-01-04] MEDS: GABAPENTIN 300 MG CAPSULE PO SCH ×3 (05:54→17:00)
[2023-01-04 08:00] VITALS: BP 119/84
[2023-01-04] MEDS: METFORMIN HCL 500 MG TABLET PO SCH ×2 (08:52→17:41)
[2023-01-04] MEDS: NUTRISOURCE FIBER 4 GM PACKET PO SCH ×3 (09:00→17:00)
[2023-01-04] MEDS: FLUTICASONE/VILANTEROL 1 EACH BLST.W.DEV INH SCH (09:00)
[2023-01-04] MEDS: INSULIN REGULAR, HUMAN 300 UNIT/3 ML VIAL SQ PRN (12:42)
[2023-01-04] MEDS ORDERED: DEXTROSE 50% 50 ML DISP.SYRIN IV PRN (13:15)
[2023-01-04 16:00] VITALS: BP 110/64
[2023-01-04] MEDS: LITHIUM CARBONATE 150 MG CAPSULE PO SCH (17:00)
[2023-01-04] MEDS ORDERED: LORAZEPAM 2 MG/1 ML VIAL IM ONE (19:15)
[2023-01-04] MEDS ORDERED: diphenhydrAMINE 50 MG/1 ML VIAL IM ONE (19:15)
[2023-01-04] MEDS ORDERED: HALOPERIDOL LACTATE 5 MG/1 ML VIAL IM ONE (19:15)
[2023-01-04 20:00] VITALS: BP 91/53
[2023-01-04] MEDS: QUETIAPINE FUMARATE 100 MG TABLET PO SCH (20:50)
[2023-01-04] MEDS: INSULIN GLARGINE,HUM 300 UNITS/3 ML CARTRIDGE SQ SCH (21:00)
[2023-01-05] MEDS: BLOOD SUGAR DIAGNOSTIC 1 EACH STRIP VI SCH ×4 (06:49→20:41)
[2023-01-05] MEDS: PANTOPRAZOLE SODIUM 40 MG TABLET.DR PO SCH (06:56)
[2023-01-05 08:00] VITALS: BP 96/53
[2023-01-05] MEDS: NUTRISOURCE FIBER 4 GM PACKET PO SCH ×3 (09:00→17:00)
[2023-01-05] MEDS: FLUTICASONE/VILANTEROL 1 EACH BLST.W.DEV INH SCH (09:00)
[2023-01-05] MEDS: METFORMIN HCL 500 MG TABLET PO SCH ×3 (10:52→18:23)
[2023-01-05] MEDS: GABAPENTIN 300 MG CAPSULE PO SCH ×3 (10:52→16:39)
[2023-01-05] MEDS: LITHIUM CARBONATE 150 MG CAPSULE PO SCH (10:52)
[2023-01-05] MEDS: INSULIN REGULAR, HUMAN 300 UNIT/3 ML VIAL SQ PRN ×2 (12:38→16:45)
[2023-01-05 16:17] VITALS: BP 98/57
[2023-01-05] MEDS: PROTEIN SUPPLEMENT (PROSTAT) 30 ML LIQUID PO SCH (17:00)
[2023-01-05 20:00] VITALS: BP 96/62
[2023-01-05] MEDS: QUETIAPINE FUMARATE 100 MG TABLET PO SCH (20:36)
[2023-01-05] MEDS: LITHIUM CARBONATE 300 MG CAPSULE PO SCH (20:36)
[2023-01-05] MEDS: INSULIN REGULAR, HUMAN 300 UNITS/3 ML VIAL SQ PRN (20:43)
[2023-01-05] MEDS: INSULIN GLARGINE,HUM 300 UNITS/3 ML CARTRIDGE SQ SCH (20:44)
[2023-01-06] MEDS: LORAZEPAM 1 MG TABLET PO PRN (04:46)
[2023-01-06] MEDS: PANTOPRAZOLE SODIUM 40 MG TABLET.DR PO SCH (06:06)
[2023-01-06] MEDS: BLOOD SUGAR DIAGNOSTIC 1 EACH STRIP VI SCH ×4 (06:06→20:23)
[2023-01-06] MEDS: METFORMIN HCL 500 MG TABLET PO SCH ×2 (09:38→16:26)
[2023-01-06] MEDS: LITHIUM CARBONATE 300 MG CAPSULE PO SCH ×2 (09:39→20:29)
[2023-01-06] MEDS: GABAPENTIN 300 MG CAPSULE PO SCH ×3 (09:39→16:25)
[2023-01-06] MEDS: FLUTICASONE/VILANTEROL 1 EACH BLST.W.DEV INH SCH (09:40)
[2023-01-06] MEDS: PROTEIN SUPPLEMENT (PROSTAT) 30 ML LIQUID PO SCH ×2 (09:40→17:11)
[2023-01-06] MEDS: NUTRISOURCE FIBER 4 GM PACKET PO SCH ×3 (09:40→17:11)
[2023-01-06 16:09] VITALS: BP 147/90
[2023-01-06 20:00] VITALS: BP 125/79
[2023-01-06] MEDS: INSULIN GLARGINE,HUM 300 UNITS/3 ML CARTRIDGE SQ SCH (20:27)
[2023-01-06] MEDS: INSULIN REGULAR, HUMAN 300 UNITS/3 ML VIAL SQ PRN (20:28)
[2023-01-06] MEDS: QUETIAPINE FUMARATE 100 MG TABLET PO SCH (20:29)
[2023-01-07] MEDS ORDERED: LORAZEPAM 2 MG/1 ML VIAL IM ONE (02:15)
[2023-01-07] MEDS ORDERED: HALOPERIDOL LACTATE 5 MG/1 ML VIAL IM ONE (02:15)
[2023-01-07] MEDS ORDERED: diphenhydrAMINE 50 MG/1 ML VIAL IM ONE (02:15)
[2023-01-07 03:47] VITALS: BP 98/61
[2023-01-07] MEDS: BLOOD SUGAR DIAGNOSTIC 1 EACH STRIP VI SCH ×4 (06:12→21:00)
[2023-01-07] MEDS: PANTOPRAZOLE SODIUM 40 MG TABLET.DR PO SCH (06:28)
[2023-01-07] MEDS: LITHIUM CARBONATE 300 MG CAPSULE PO SCH ×2 (08:58→21:00)
[2023-01-07] MEDS: METFORMIN HCL 500 MG TABLET PO SCH ×2 (08:58→16:51)
[2023-01-07] MEDS: GABAPENTIN 300 MG CAPSULE PO SCH ×3 (08:58→16:51)
[2023-01-07] MEDS: NUTRISOURCE FIBER 4 GM PACKET PO SCH ×3 (08:59→16:52)
[2023-01-07] MEDS: FLUTICASONE/VILANTEROL 1 EACH BLST.W.DEV INH SCH (08:59)
[2023-01-07] MEDS: PROTEIN SUPPLEMENT (PROSTAT) 30 ML LIQUID PO SCH ×2 (09:00→16:52)
[2023-01-07 16:06] VITALS: BP 120/76
[2023-01-07 20:13] VITALS: BP 132/74
[2023-01-07] MEDS: INSULIN GLARGINE,HUM 300 UNITS/3 ML CARTRIDGE SQ SCH (21:00)
[2023-01-07] MEDS: QUETIAPINE FUMARATE 100 MG TABLET PO SCH (21:00)
[2023-01-07] MEDS: LORAZEPAM 1 MG TABLET PO PRN (21:25)
[2023-01-08] MEDS: PANTOPRAZOLE SODIUM 40 MG TABLET.DR PO SCH (06:34)
[2023-01-08] MEDS: BLOOD SUGAR DIAGNOSTIC 1 EACH STRIP VI SCH ×4 (06:35→21:00)
[2023-01-08] MEDS: METFORMIN HCL 500 MG TABLET PO SCH ×2 (08:00→17:17)
[2023-01-08 08:31] VITALS: BP 106/67
[2023-01-08] MEDS: GABAPENTIN 300 MG CAPSULE PO SCH ×4 (09:00→17:17)
[2023-01-08] MEDS: FLUTICASONE/VILANTEROL 1 EACH BLST.W.DEV INH SCH (09:00)
[2023-01-08] MEDS: NUTRISOURCE FIBER 4 GM PACKET PO SCH ×3 (09:00→17:14)
[2023-01-08] MEDS: LITHIUM CARBONATE 300 MG CAPSULE PO SCH (09:00)
[2023-01-08] MEDS: PROTEIN SUPPLEMENT (PROSTAT) 30 ML LIQUID PO SCH ×2 (09:00→17:17)
[2023-01-08 16:22] VITALS: BP 136/86
[2023-01-08] MEDS: TOPIRAMATE 25 MG TABLET PO SCH (17:17)
[2023-01-08 19:53] VITALS: BP 130/82
[2023-01-08] MEDS: LORAZEPAM 1 MG TABLET PO PRN (20:00)
[2023-01-08] MEDS ORDERED: QUETIAPINE FUMARATE 100 MG TABLET PO SCH (21:00)
[2023-01-08] MEDS: INSULIN GLARGINE,HUM 300 UNITS/3 ML CARTRIDGE SQ SCH (21:00)
[2023-01-08] MEDS: QUETIAPINE FUMARATE 200 MG TABLET PO SCH (21:01)
[2023-01-09] MEDS: ACETAMINOPHEN 325 MG TABLET PO PRN (04:13)
[2023-01-09] MEDS: LORAZEPAM 1 MG TABLET PO PRN ×2 (04:13→23:08)
[2023-01-09] MEDS: BLOOD SUGAR DIAGNOSTIC 1 EACH STRIP VI SCH ×4 (06:36→21:00)
[2023-01-09] MEDS: PANTOPRAZOLE SODIUM 40 MG TABLET.DR PO SCH (06:37)
[2023-01-09 08:14] VITALS: BP 100/58
[2023-01-09] MEDS: METFORMIN HCL 500 MG TABLET PO SCH ×2 (08:57→16:42)
[2023-01-09] MEDS: GABAPENTIN 300 MG CAPSULE PO SCH ×3 (08:57→16:43)
[2023-01-09] MEDS: TOPIRAMATE 25 MG TABLET PO SCH ×2 (08:57→16:42)
[2023-01-09] MEDS: NUTRISOURCE FIBER 4 GM PACKET PO SCH ×3 (09:00→16:43)
[2023-01-09] MEDS: FLUTICASONE/VILANTEROL 1 EACH BLST.W.DEV INH SCH (09:00)
[2023-01-09] MEDS: PROTEIN SUPPLEMENT (PROSTAT) 30 ML LIQUID PO SCH ×2 (09:00→16:44)
[2023-01-09 15:41] VITALS: BP 131/72
[2023-01-09 20:07] VITALS: BP 116/56
[2023-01-09] MEDS: INSULIN GLARGINE,HUM 300 UNITS/3 ML CARTRIDGE SQ SCH (21:00)
[2023-01-09] MEDS: TEMAZEPAM 7.5 MG CAPSULE PO PRN (21:35)
[2023-01-09] MEDS: QUETIAPINE FUMARATE 200 MG TABLET PO SCH (21:35)
[2023-01-10] MEDS: PANTOPRAZOLE SODIUM 40 MG TABLET.DR PO SCH (06:24)
[2023-01-10] MEDS: BLOOD SUGAR DIAGNOSTIC 1 EACH STRIP VI SCH ×4 (07:02→21:00)
[2023-01-10 08:01] VITALS: BP 102/78
[2023-01-10] MEDS: METFORMIN HCL 500 MG TABLET PO SCH ×2 (08:31→18:04)
[2023-01-10] MEDS: GABAPENTIN 300 MG CAPSULE PO SCH ×3 (08:31→18:04)
[2023-01-10] MEDS: FLUTICASONE/VILANTEROL 1 EACH BLST.W.DEV INH SCH (08:32)
[2023-01-10] MEDS: TOPIRAMATE 25 MG TABLET PO SCH ×2 (08:32→18:04)
[2023-01-10] MEDS: NUTRISOURCE FIBER 4 GM PACKET PO SCH ×2 (08:32→13:00)
[2023-01-10] MEDS: PROTEIN SUPPLEMENT (PROSTAT) 30 ML LIQUID PO SCH (08:32)
[2023-01-10] MEDS: INSULIN REGULAR, HUMAN 300 UNIT/3 ML VIAL SQ PRN ×3 (08:34→17:57)
[2023-01-10 15:05] VITALS: BP 100/55
[2023-01-10 20:10] VITALS: BP 108/76
[2023-01-10] MEDS: QUETIAPINE FUMARATE 200 MG TABLET PO SCH (20:37)
[2023-01-10] MEDS: INSULIN GLARGINE,HUM 300 UNITS/3 ML CARTRIDGE SQ SCH (21:00)
[2023-01-10] MEDS: TEMAZEPAM 7.5 MG CAPSULE PO PRN (21:03)
[2023-01-11] MEDS: BLOOD SUGAR DIAGNOSTIC 1 EACH STRIP VI SCH ×4 (06:36→21:25)
[2023-01-11] MEDS: PANTOPRAZOLE SODIUM 40 MG TABLET.DR PO SCH (06:36)
[2023-01-11 08:00] VITALS: BP 100/59
[2023-01-11] MEDS: FLUTICASONE/VILANTEROL 1 EACH BLST.W.DEV INH SCH (09:00)
[2023-01-11] MEDS: GABAPENTIN 300 MG CAPSULE PO SCH ×4 (09:00→17:11)
[2023-01-11] MEDS: TOPIRAMATE 25 MG TABLET PO SCH ×3 (09:00→17:11)
[2023-01-11] MEDS: METFORMIN HCL 500 MG TABLET PO SCH ×3 (09:00→18:00)
[2023-01-11] MEDS: LORAZEPAM 1 MG TABLET PO PRN (21:03)
[2023-01-11] MEDS: TEMAZEPAM 7.5 MG CAPSULE PO PRN (21:04)
[2023-01-11] MEDS: QUETIAPINE FUMARATE 200 MG TABLET PO SCH (21:09)
[2023-01-11] MEDS: INSULIN GLARGINE,HUM 300 UNITS/3 ML CARTRIDGE SQ SCH (21:23)
[2023-01-11] MEDS: INSULIN REGULAR, HUMAN 300 UNITS/3 ML VIAL SQ PRN (21:34)
[2023-01-12] MEDS: LORAZEPAM 1 MG TABLET PO PRN (04:49)
[2023-01-12] MEDS: ACETAMINOPHEN 325 MG TABLET PO PRN (04:49)
[2023-01-12] MEDS: PANTOPRAZOLE SODIUM 40 MG TABLET.DR PO SCH (07:00)
[2023-01-12] MEDS: BLOOD SUGAR DIAGNOSTIC 1 EACH STRIP VI SCH ×2 (07:24→11:30)
[2023-01-12 07:41] VITALS: BP 97/59
[2023-01-12] MEDS: METFORMIN HCL 500 MG TABLET PO SCH (08:00)
[2023-01-12] MEDS: FLUTICASONE/VILANTEROL 1 EACH BLST.W.DEV INH SCH (09:00)
[2023-01-12] MEDS: GABAPENTIN 300 MG CAPSULE PO SCH (09:00)
[2023-01-12] MEDS: TOPIRAMATE 25 MG TABLET PO SCH (09:00)
== END 2023-01-12 13:15 | DRG 885 ==
LOC: ER 19:18 → GPS 21:45
PROVIDERS: ADMIT Psychiatry & Neurology Psychosomatic Medicine; ATTEND Nurse Practitioner Acute Care
DX: F25.0 Schizoaffective disorder, bipolar type (principal); E11.65 Type 2 diabetes mellitus with hyperglycemia; D68.59 Other primary thrombophilia; Z68.41 Body mass index [BMI] 40.0-44.9, adult; F60.9 Personality disorder, unspecified; Z59.02 Unsheltered homelessness; Z91.14 Patient's other noncompliance with medication regimen; E78.5 Hyperlipidemia, unspecified; J44.9 Chronic obstructive pulmonary disease, unspecified; K21.9 Gastro-esophageal reflux disease without esophagitis; Z88.0 Allergy status to penicillin; Z79.4 Long term (current) use of insulin; Z79.899 Other long term (current) drug therapy; Z20.822 Contact with and (suspected) exposure to COVID-19; I10 Essential (primary) hypertension; Z79.51 Long term (current) use of inhaled steroids; E66.01 Morbid (severe) obesity due to excess calories
CPT/HCPCS: 36415; 85025; A4663; J1200; J1630; J1815; J2060; J2358